=== PATIENT | female | born 1990 | race Caucasian/White ===

== ENCOUNTER 2024-02-12 07:41 | Emergency (ER) | payer OTHER, SELFPAY ==
[2024-02-12 07:42] VITALS: BP 138/99; PULSE 90; RESP 18; TEMP 36.4; O2SAT 97; BMI 22.8
--- NOTE | 2024-02-12 07:49 | EDS_ITS ---
HPI History of Present Illness Chief Complaint: Back [facility] Medical History (Updated 02/12/24 @ 10:[address] Toby Serrano, DO) Anxiety Rosacea Home Medications ?Medication ?Instructions ?Recorded ?Last Taken ?Type doxycycline monohydrate 50 mg 50 mg PO DAILY 06/03/19 Unknown History capsule drospirenone 3 mg-ethinyl 1 tab PO DAILY take active pills 06/03/19 Unknown Rx estradiol 0.03 mg tablet (Rylie only for continuous cycling #28 (28)) tabs lorazepam 0.5 mg tablet (Ativan) 0.5 mg PO QHS PRN 06/03/19 Unknown History oxycodone 5 mg tablet 5 mg PO Q6H PRN pain 4 days #16 02/12/24 Unknown Rx tabs Allergy/AdvReac Type Severity Reaction Status Date / Time Penicillins Allergy Rash Verified 02/12/24 07:42 Family History Mother Thyroid disorder Heart disease Father Cancer Grandmother Breast cancer Social History (Updated 06/03/19 @ 10:20 by Sofia Watkins PATTERN MOLDER, PATTERN MOLDER-C) adopted: No current occupational status: employed current occupation: self employed mental therapist pets and animals: Yes Smoking Status: Never smoker second hand exposure: No alcohol intake: current substance use type: does not use seatbelt use: always do you feel safe at home: Yes EXAM Physical Exam Const Vital Signs: 02/12/24 07:42 Temperature 97.6 F L Temperature Source Temporal Pulse Rate 90 Respiratory Rate 18 Blood Pressure 138/99 H Blood Pressure Mean 112 Pulse Ox 97 Oxygen Delivery Method Room Air MDM MDM MDM Narrative Medical decision making narrative: HISTORY OF PRESENT ILLNESS: 34-year-old female presents with back pain and right hip pain. Notes she fell from horse on Sunday (2 days prior to arrival). Denies head trauma, loss of consciousness. Patient denies any saddle anesthesia, urinary retention, bowel or bladder incontinence, lower extremity weakness, fever or IV drug use, no recent spinal manipulation or surgery, no recent urinary catheterization. REVIEW OF SYSTEMS: Pertinent positives: Back pain, right hip pain Pertinent negatives: Followed by oncology, cyanosis, numbness weakness or loss sensation PHYSICAL EXAM: Nursing triage notes reviewed, Vital signs reviewed Primary Survey Airway: Intact Breathing: Bilateral breath sounds Circulation: Palpable bilateral femorals, Palpable bilateral radial, Palpable bilateral DP and Palpable bilateral PT Disability / Spine precautions GCS Score: Eye Openin Verbal Response: 5 Motor Response: 6 Secondary Survey Constitutional: Please see [facility] Head: Atraumatic, Midface stable, NO jaw malocclusion, No Cephalohematoma, and No Lacerations noted Eye: Pupils equal round and reactive to light, Extraocular muscles intact and No periorbital ecchymosis or stepoff, no evidence of entrapment ENT: Oropharynx clear, no lacerations, no hemotympanum, no raccoon eyes or zarate sign Cervical spine / Neck: No cervical spine bony tenderness, crepitance, or stepoff deformity Trachea midline Lungs: Clear to auscultation, No asymmetric rise and No crepitus, no flail chest Cardiac: Regular rate and rhythm and No murmurs Abdomen: Soft, Nontender and No rebound Pelvis: Pelvis stable to compression : No evidence of genital injury Back: TTP over lower lumbar/sacral spines Neuro: At baseline, intact strength and sensation in bilateral upper and lower extremities. 2+ patellar reflexes bilaterally. Extremities: NO gross Deformities. Intact sensation L1-S1 dermatomal distributions. Intact 5/5 strength in hip flexion (T12-L3). Knee extension (L2-L4). Ankle dorsiflexion (L4-L5). Ankle plantar flexion (S1). Great toe extension (L5). 2+ patellar and Achilles DTRs. Psych: Normal affect Nursing triage notes reviewed, Vital signs reviewed MEDICAL DECISION MAKING: Chief Complaint: Back pain, right hip External records reviewed: Reviewed allergies, vital signs, medications, prior imaging. Factors affecting care: Anxiety, rosacea [facility] Narrative: Patient was initially hemodynamically stable, afebrile and nontoxic-appearing. Primary secondary trauma surveys concerning for the following differential I considered the following differential diagnosis: Lumbar spine fracture, dislocation, right hip fracture dislocation, lumbar contusion, hip contusion I obtain imaging to further elucidate etiology of the patient's complaint ALL IMAGES (IF OBTAINED) HAVE BEEN PERSONALLY REVIEWED AND INTERPRETED BY MYSELF. CT scan of the lumbar spine and CT scan of the pelvis shows no evidence of bony abnormality. Shows evidence of disc herniation Insert obtain a stat MRI however the patient had no focal neurologic deficits to warrant an MRI at this time. No indication for acute surgical consultation. Repeat neurologic exam was intact with no signs of poor reflexes, weakness, loss of sensation. Will give narcotic pain medication and orthopedic follow-up. Strict return precautions were discussed. The patient and/or family, caregivers express understanding. The patient and/or family, caregivers agrees with the plan. Shared decision making: I will have a discussion with the patient and or visitors regarding risk/benefits of further testing or admission. They will be made aware of of the risk/benefits inherent in this decision they will be given the opportunity to voice understanding. Total critical care time today provided was at least 0 minutes. This excludes separately billable procedures. Critical care time (if documented) is secondary to the patient having high probability of clinically significant/life threatening deterioration in the patient's condition which required my urgent intervention. Impression: 1. Acute back pain 2. Acute right hip pain Dispo: Discharge This note was generated with WebNotesation software. It may contain incorrect words, spelling, and punctuation that were not noted in review of the chart prior to signing. Lab Data Labs: Laboratory Results - last 24 hr 02/12/24 09:00 Urine Test Negative Radiography Diagnostic Testing: Clinical Impression(s) from Imaging Studies Abdomen/Pelvis CT 02/12/24 08:49 IMPRESSION: 1. No solid organ injury or acute abnormality in the abdomen and pelvis. 2. No suspicious acute fracture or dislocation in the pelvis and both hips. 3. Asymmetry of the right lateral recess at the lower L4-L5 disc space level extending down to the right L5-S1 intervertebral neuroforamen. This is suspicious for right-sided caudally extruded disc fragment coming from the L4-L5 disc space level but extending into the right L5-S1 intervertebral neuroforamen. Advise clinical correlation for symptoms of right L5 nerve root sleeve radiculopathy. MRI lumbar spine will help confirm. Electronically Signed: Basil Benjamin MD at 9:50 EDT , Lumbar Spine CT 02/12/24 08:49 IMPRESSION: 1. Suspicious right L4-L5 posterior caudal disc extrusion into the right lateral recess extending into the the right L5-S1 intervertebral neuroforamen. Advise clinical correlation if there are symptoms of right L5 nerve root sleeve radiculopathy. MRI lumbar spine will help confirm. 2. Normal developmental asymmetry of the left L5-S1 lateral recess without associated ventral extradural defect when compared to the right. MRI lumbar spine will help confirm. 3. Normal remainder of the lumbar spine. Electronically Signed: Basil Benjamin MD at 9:58 EDT , Discharge Plan Triage Chief Complaint: Back ED Provider: Toby Serrano Dx/Rx/DC Orders Instructions: ED Herniated Intervertebral Disk Prescriptions: New oxycodone 5 mg tablet 5 mg PO Q6H PRN (Reason: pain) 4 Days Qty: 16 0RF No Action doxycycline monohydrate 50 mg capsule 50 mg PO DAILY lorazepam [Ativan] 0.5 mg tablet 0.5 mg PO QHS PRN drospirenone-ethinyl estradiol [Rylie (28)] 3-0.03 mg tablet 1 tab PO DAILY Qty: 28 4RF Stand Alone Forms: ED Work / School Excuse Primary Care Provider: Arthur Valle Referrals: Adryan Donnelly DO [Med Staff - Active Staff] - Activity Restrictions/Additional Instructions: Thank you for trusting us with your care today! Your images were reassuring. There showed no evidence of broken bones in your lower back hip or pelvis. Showed evidence of a herniated disc. Please take Tylenol (2 pills, 650 mg), ibuprofen (2 pills, 400 mg) every 6 hours as needed for pain and fever control. Please take oxycodone as needed for breakthrough pain if the above regimen does not control your pain. Please return to the emergency department if your symptoms change or worsen. Specifically if you develop loss of sensation around your bowel, numbness weakness or loss sensation in your lower extremities, urinary retention, inability to ambulate. Please follow with your primary care physician for further outpatient evaluation and management. Print Language: Greenlandic Disposition Disposition: Home, Self Care
--- NOTE | 2024-02-12 08:49 | CT_ITS ---
EXAM: CT ABDOMEN AND PELVIS WITHOUT INTRAVENOUS CONTRAST CLINICAL INDICATION: Pelvic pain. Fell off horse 2 days ago TECHNIQUE: Helically acquired images were obtained of the abdomen and pelvis without intravenous contrast. This CT exam was performed using one or more of the following dose reduction techniques: automated exposure control, adjustment of the mA and/or kV according to patient size, and/or use of iterative reconstruction technique. RADIATION DOSE: CTDIvol = 6.87 mGy, DLP = 325.05 mGy-cm COMPARISON: No relevant prior studies available. FINDINGS: LOWER THORAX: Unremarkable. Lung bases are clear. No cardiomegaly. No significant pericardial effusion. ABDOMEN: LIVER: Unremarkable. Homogeneous. GALLBLADDER AND BILE DUCTS: Unremarkable. No calcified gallstones. No gallbladder distention or wall edema. No intra- or extrahepatic biliary ductal dilation. PANCREAS: Unremarkable. No focal cystic mass. SPLEEN: Unremarkable. Normal size without focal cystic or solid mass. ADRENALS: Unremarkable. No nodules. KIDNEYS AND URETERS: Unremarkable. Normal renal size and position. No hydronephrosis. STOMACH AND BOWEL: Unremarkable. No stomach or bowel distention. No focal inflammatory change. PELVIS: APPENDIX: Normal. BLADDER: Unremarkable. REPRODUCTIVE: Unremarkable as visualized. No mass. ABDOMEN and PELVIS: INTRAPERITONEAL SPACE: Unremarkable. No ascites or other fluid collection. No free air. BONES/JOINTS: Unremarkable. No suspicious lytic or blastic abnormality. SOFT TISSUES: Unremarkable. No discrete abdominal or pelvic wall hernia. VASCULATURE: Unremarkable. Abdominal aorta is non-dilated. LYMPH NODES: Unremarkable. No enlarged lymph nodes. OTHER FINDINGS: Asymmetry of the right lateral recess at the lower L4-L5 disc space level compared to the left. This extends caudally into the right L5-S1 intervertebral neuroforamen. CT/Abdomen/Pelvis without Cont IMPRESSION: 1. No solid organ injury or acute abnormality in the abdomen and pelvis. 2. No suspicious acute fracture or dislocation in the pelvis and both hips. 3. Asymmetry of the right lateral recess at the lower L4-L5 disc space level extending down to the right L5-S1 intervertebral neuroforamen. This is suspicious for right-sided caudally extruded disc fragment coming from the L4-L5 disc space level but extending into the right L5-S1 intervertebral neuroforamen. Advise clinical correlation for symptoms of right L5 nerve root sleeve radiculopathy. MRI lumbar spine will help confirm. Electronically Signed: Basil Benjamin MD at 9:50 EDT ,
--- NOTE | 2024-02-12 08:49 | CT_ITS ---
STUDY: CT LUMBAR SPINE WITHOUT CONTRAST REASON FOR EXAM: Female, 34 years old. Low back pain RADIATION DOSAGE (If Supplied By Facility): CTDIvol = ( 13.82 ) mGy, DLP = ( 453.27 ) mGycm TECHNIQUE: The patient was scanned in a multi detector CT scanner. High resolution transaxial imaging was performed. Images were obtained from the upper T12 to lower S5. Sagittal and coronal images were reconstructed. Individualized dose optimization techniques were used for this CT. The protocol utilizes one or more of the following dose reduction techniques: automated exposure control, adjustment of mA and/or kV according to patient size, and/or use of iterative reconstruction technique. COMPARISON: None FINDINGS: Normal lumbar lordosis. There is no substantial scoliosis. Normal vertebrae of the lumbar spine. T12-L1 and L1-2: Normal endplates. Normal disc height and morphology. Normal bilateral facet joints. Normal central canal and bilateral lateral recesses. Normal bilateral intervertebral neural foramina. L2-3: Normal endplates. Normal disc height and morphology. Normal bilateral facet joints. Normal central canal and bilateral lateral recesses. Normal bilateral intervertebral neural foramina. L3-4: Normal endplates. Normal disc height and morphology. Normal bilateral facet joints. Normal central canal and bilateral lateral recesses. Normal bilateral intervertebral neural foramina. L4-5: Normal endplates. Normal disc height and morphology. Normal facet joints. Asymmetry of the right lateral recess compared to the left extending caudally into the right L5-S1 intervertebral neuroforamen is suspicious for caudal disc extrusion. Normal central canal and left lateral recess. Normal bilateral intervertebral neuroforamina. L5-S1: Normal endplates. Normal disc height and morphology. Normal facet joints. Asymmetry of the left lateral recess due to developmental asymmetry of the thecal sac without associated ventral extradural defect. Normal central canal. Abnormal right intervertebral neuroforamen suspiciously secondary to right L4-L5 and caudally extruded disc fragment. Normal left intervertebral neuroforamen. Normal visualized paraspinous soft tissue structures. CT/Spine Lumbar without Contrast IMPRESSION: 1. Suspicious right L4-L5 posterior caudal disc extrusion into the right lateral recess extending into the the right L5-S1 intervertebral neuroforamen. Advise clinical correlation if there are symptoms of right L5 nerve root sleeve radiculopathy. MRI lumbar spine will help confirm. 2. Normal developmental asymmetry of the left L5-S1 lateral recess without associated ventral extradural defect when compared to the right. MRI lumbar spine will help confirm. 3. Normal remainder of the lumbar spine. Electronically Signed: Basil Benjamin MD at 9:58 EDT ,
[2024-02-12] MEDS: oxyCODONE 5 MG Tablet PO (09:02)
[2024-02-12] MEDS: Acetaminophen 325 MG Tablet 650 MG PO (09:02)
[2024-02-12 09:15] LABS: Internal QC Validated? YES +Cl - CLEAR BKGD; Pregnancy, Urine Negative Negative
[2024-02-12 11:23] VITALS: BP 134/79; PULSE 75; RESP 16; TEMP 36.4; O2SAT 100
== END 2024-02-12 11:24 | disposition home or self-care (01) ==
PROVIDERS: Emergency Provider Emergency Medicine; PCP Student in an Organized Health Care Education/Training Program; Visit Provider Emergency Medicine
DX: M54.50 Low back pain, unspecified (principal); M25.551 Pain in right hip; V80.010A Animal-rider injured by fall from or being thrown from horse in noncollision accident, initial encounter
CPT/HCPCS: 72131; 74176; 81025; 99282